=== PATIENT | male | born 1950 | race Caucasian/White ===

== ENCOUNTER 2017-12-07 13:23 | Emergency (ER) | payer MEDICARE ==
[2017-12-07 13:57] LABS: Bilirubin Negative (Negative); Blood, Urine Negative (Negative); Clarity CLEAR (Clear); Glucose, Urine (Dipstick) Negative (Negative); Leukocyte Moderate (Negative); Nitrite Negative (Negative); Protein, Urine (Dipstick) Negative (Neg-Trace); Specific Gravity, Urine 1.027 (1.002-1.036); pH, Urine 5.5 (5.0-9.0)
[2017-12-07 14:00] LABS: #Basophils 0.1 thou/uL (0.0-0.2); #Eosinphils 0.3 thou/uL (0.0-0.7); #Lymphocytes 2.9 thou/uL (1.20-3.40); #Monocytes 0.6 thou/uL (0.11-0.59); #Neutrophils 4.5 thou/uL (1.40-6.50); %Basophils 0.7 % (0.0-1.0); %Eosinophils 3.4 % (0.0-10.0); %Lymphocytes 34.8 % (21.0-51.0); %Monocytes 7.4 % (0.0-10.0); %Neutrophils 53.7 % (42.0-75.0); Hemoglobin 15.7 g/dL (14.0-18.0); Mean Corpuscular HGB CONC 34.1 g/dL (32.0-36.0); Mean Corpuscular Volume 90.7 fl (80.0-94.0); Mean Platelet Volume 8.9 fL (7.4-10.4); Platelet Count 253 thou/uL (130-400); RBC Distribution Width 12.1 % (11.5-14.5); Red Blood Cell (RBC) Count 5.08 mill/uL (4.70-6.10); White Blood Cell (WBC) Count 8.4 thou/uL (4.8-10.8)
[2017-12-07 14:00] LABS: Bacteria/HPF None Seen HPF (None Seen); Hyaline Casts/LPF 0-3 HYALINE CAST LPF (0-3 Hyaline); Squamous Epithelial 0-3 HPF (0-3)
[2017-12-07 14:33] LABS: ALT (SGPT) 36 U/L (8-55); AST (SGOT) 42 U/L (5-34); Albumin 4.6 g/dL (3.4-4.8); Alkaline Phosphatase 68 U/L (40-150); Anion Gap 13 mmol/L (10-20); BUN (Urea Nitrogen) 18 mg/dL (8.4-25.7); Bilirubin, Total 0.5 mg/dL (0.2-1.2); Calc. Creatinine Clearance 0 mL/min (70-130); Carbon Dioxide 24 mmol/L (23-31); Chloride 106 mmol/L (98-107); Estimated GFR-MDRD 57; Globulin 3.1 g/dL (2.4-3.5); Glucose 115 mg/dL (80-115); Lipase 66 U/L (8-78); Potassium 3.8 mmol/L (3.5-5.1); Protein, Total 7.7 g/dL (5.8-8.1); Sodium 139 mmol/L (136-145)
--- NOTE | 2017-12-07 15:33 | CT ---
ABDOMEN AND PELVIC CT SCAN WITH IV CONTRAST: History: 67-year-old male with history of left lower quadrant pain for several weeks. FINDINGS: The lung bases are clear. Status post cholecystectomy. Small hiatal hernia. Visualized liver, pancrea s, spleen and adrenal glands are unremarkable. There is a 0.9 x 1.5 cm diameter large obstructing chayo culus at the left ureteropelvic junction with marked hydronephrosis. There is at least one other nono bstructing left renal calculus measuring 0.4 cm. No evidence for other ureteral calculus. There appea rs to be some post op changes in the upper bilateral inguinal canals. Status post appendectomy. No ab scess or abnormal fluid collection. NO evidence for diverticulitis. IMPRESSION: Large obstructing left sided calculi at the ureteropelvic junction with marked hydronephrosis. Additi onally there is a smaller nonobstructing left renal calculus. Small hiatal hernia. Post op hysterecto my and appendectomy as well as some post-operative changes in the inguinal canals. No evidence for ac fay diverticulitis. No evidence for other significant acute process. POS: JAYRO
[2017-12-07 16:14] LABS: Platelet Count 231 thou/uL (130-400)
--- NOTE | 2017-12-07 17:23 | RAD ---
RADIOGRAPH ABDOMEN ONE VIEW: 12/07/2017 4:03 p.m. HISTORY: A 67-year-old male with obstructive calculus at left UPJ. FINDINGS: After IV contrast was given for the CT of 12/07/2017, 2:44 p.m., delayed excretion and retained contr ast material within a severely dilated left renal collecting system is present now. Calculus at the left UPJ, at the lower L2 level, is noted (approximately 15 x 9 mm). Contrast material in a nondilat ed right renal collecting system and right ureter. Questionable minimal amount of contrast material in a nondilated left mid ureter. Contrast in a normal appearing urinary bladder. IMPRESSION: Severe obstruction at the left ureteropelvic junction by a 15 mm calculus, causing severe left hydron ephrosis. POS: JAYRO
[2017-12-07] MEDS ORDERED: ISOVUE-370 76%-LOCM 1 ML ONE (17:49)
== END 2017-12-07 17:05 | disposition home or self-care (01) ==
LOC: ERS 13:23
DX: N13.2 Hydronephrosis with renal and ureteral calculous obstruction (principal); I10 Essential (primary) hypertension; F41.9 Anxiety disorder, unspecified; Z79.82 Long term (current) use of aspirin; Z79.899 Other long term (current) drug therapy
CPT/HCPCS: 36415; 74018; 74177; 80053; 81003; 81015; 83690; 85025; 85576

== ENCOUNTER 2017-12-09 09:29 | Day surgery (SDC) | payer MEDICARE ==
[2017-12-08 11:43] VITALS: BMI 26.6
[2017-12-09] MEDS ORDERED: Midazolam HCl 2 mg/2 ml Vial ONE (11:36)
[2017-12-09] MEDS ORDERED: Fentanyl 100 MCG/2 ML VIAL ONE (11:36)
--- NOTE | 2017-12-09 11:41 | EKG ---
Test Reason : PREOP Blood Pressure : / mmHG Vent. Rate : 063 BPM Atrial Rate : 063 BPM P-R Int : 178 ms QRS Dur : 092 ms QT Int : 424 ms P-R-T Axes : 048 004 026 degrees QTc Int : 433 ms Normal sinus rhythm Normal ECG When compared with ECG of 11-DEC-2014 09:30, No significant change was found Confirmed by DR. Kavitha KEBEDE ([id number]) on 12/09/2017 11:40:47 AM Referred By: RAMIN Confirmed By:DR. Kavitha KEBEDE
[2017-12-09] MEDS ORDERED: Iothalamate Meglumine 60% 50 ML VIAL FS ONE (13:14)
[2017-12-09] MEDS ORDERED: PROPOFOL 200 MG/20 ML VIAL ONE (13:17)
[2017-12-09] MEDS ORDERED: Ondansetron HCl/PF 4 MG/2 ML Vial ONE ×2 (13:17→13:36)
[2017-12-09] MEDS ORDERED: ePHEDrine/0.9% NaCl/PF SYRINGE 50 mg/10 ml ONE (13:17)
[2017-12-09] MEDS ORDERED: Dexamethasone 20 MG/5 ML VIAL ONE (13:17)
[2017-12-09] MEDS ORDERED: PHENYLEPHRINE-NS 100 MCG/ML 10 ML SYRINGE ONE (13:17)
[2017-12-09] MEDS ORDERED: Lidocaine 1% PF 5 ML VIAL ONE (13:17)
--- NOTE | 2017-12-09 14:39 | OP ---
DATE OF PROCEDURE: 12/09/2017 PREOPERATIVE DIAGNOSIS: Left renal stone. POSTOPERATIVE DIAGNOSIS: Left renal stone. PROCEDURE PERFORMED: Left ESWL, cystoscopy, left retrograde, left stent. SURGEON: Dr. Raf Wilson. ANESTHETIC: General. ESTIMATED BLOOD LOSS: Not recorded. FINDINGS: He had a very easily visualized proximal left ureteral stone, measuring, I would guess, ab out a cm in its largest diameter. His CAT scan, I think, showed it to be 1.5 mm. He was treated wit h 3000 shocks at maximum kV level of 6. It did appear to fragment well. At the end of the procedure , a stent was placed. There was still some difficulty in passing a guidewire by it. There was a lit tle bit of extravasation of contrast while doing this. He had a dilated calyceal system proximal to it. We ended up placing a 6 x 26 Polaris double-J stent with a string attached. OPERATIVE TECHNIQUE: Obtained written and verbal consents from the patient, he was taken to the oper ating suite. He was placed in supine position on the treatment table. PlexiPulses were placed on hi s lower extremities and turned on. He was given a general anesthetic, oral obturator intubation. He was coupled to the lithotripter unit. The stone was placed in treatment focal point and shockwave t herapy was commenced at a rate of 60 at a very low kV after a couple 100 shocks, a 5-minute pause was given. We then slowly brought the kV up to 6. He was treated with total of 3000 shocks. Fluorosco py was used intermittently to document fragmentation and to re-position as necessary. It did appear that the stone had fragmented into a number of pieces, but because of its size, we went ahead and mariangel cted to do a stent. He was taken and placed in the dorsal lithotomy position. He has received 2 gra ms of IV Ancef. He was sterilely prepped and draped. Cystoscopy was performed with a 22-Mongolian perez th. This was well-lubricated and passed in direct vision through the male urethra into the urinary b ladder with the aid of a 30-degree lens and video camera and monitor. The bladder was filled and emp tied. There was some bloody efflux from the left ureteral orifice. A guidewire was fed up to the le isabel of stone. It would not go by this. A Pollack catheter was fed up to this level. The wire was r emoved, some half and half contrast was injected showing a dilated calyceal system and filling defect with stone was in the proximal ureter/UPJ region. We could not get the guidewire by it, but we were able to get an angle-tipped Glidewire by it and then re-shot some contrast. There was a little bit of extravasation, but then contrast in the dilated collecting system. We then were able to get the o pen-ended catheter abide the stone over the Glidewire, replaced the Glidewire with a guidewire, remov ed the open-ended catheter and placed a 6 x 26 Polaris double-J stent pushing it up with the aid of a pusher so its proximal cord in the renal pelvis and its distal end coiled in the bladder when the wi re was removed. The bladder was drained and the instruments were removed. The string had been left attached to the distal end of the stent. He was, at this point, awakened, extubated, and taken by a stretcher to recovery room.
[2017-12-09] MEDS ORDERED: HYDROcodone/Acetaminophen 5/325 mg Tablet ONE (15:58)
== END 2017-12-09 16:25 | disposition home or self-care (01) ==
LOC: SDC 09:29
PROVIDERS: ATTEND Urology
PROC: 0TF7XZZ Fragmentation in Left Ureter, External Approach (ICD-10-PCS; principal; 2017-12-09)
PROC: 0T778DZ Dilation of Left Ureter with Intraluminal Device, Via Natural or Artificial Opening Endoscopic (ICD-10-PCS; 2017-12-09)
DX: N20.1 Calculus of ureter (principal); I25.10 Atherosclerotic heart disease of native coronary artery without angina pectoris; E78.5 Hyperlipidemia, unspecified; Z79.82 Long term (current) use of aspirin; Z79.899 Other long term (current) drug therapy; Z88.2 Allergy status to sulfonamides; Z98.890 Other specified postprocedural states
CPT/HCPCS: 50590; 52332; 93005; C1758; C1769; 93010; J1100; J2001; J2250; J2405; J2704; J3010; Q9961

== ENCOUNTER 2019-02-25 10:32 | Day surgery (SDC) | payer MEDICARE ==
--- NOTE | 2019-02-24 11:16 | HP ---
HISTORY OF PRESENT ILLNESS: Mr. Zhao Mccracken is a 68-year-old male, comes in for a colonoscopy for colon cancer screening. The patient has no specific GI symptoms. He has no family history of colon cancer. His last colonoscopy was 11 years ago. ALLERGIES: SULFA. SOCIAL HISTORY: He is a former smoker. He does not drink alcohol. MEDICAL ILLNESS: 1. Hypertension. 2. Hyperlipidemia. 3. Status post coronary artery bypass graft. 4. Kidney stones, status post lithotripsy. 5. Prostatic hypertrophy. 6. Depression/anxiety. 7. Appendectomy. 8. Cholecystectomy. 9. Double hernia repair. PHYSICAL EXAMINATION: VITAL SIGNS: Pulse is 70, blood pressure 130/76. HEENT: Conjunctivae are clear. CARDIOVASCULAR: First and second heart sounds are normal. LUNGS: Clear to auscultation. ABDOMEN: Soft. No organomegaly. No tenderness. No masses. EXTREMITIES: Reveal no edema. ADMITTING DIAGNOSIS: A 68-year-old male, comes for a colonoscopy for colon cancer screening. Job ID: [id number]
[2019-02-24 11:25] VITALS: BMI 27.6
--- NOTE | 2019-02-25 18:35 | OP ---
DATE OF PROCEDURE: 02/25/2019 OPERATIVE PROCEDURE: Colonoscopy. PREOPERATIVE DIAGNOSIS: This is a 68-year-old male, undergoing colonoscopy for colon cancer screening. POSTOPERATIVE DIAGNOSES: 1. Hemorrhoids. 2. Sigmoid diverticular disease. DESCRIPTION OF PROCEDURE: The patient was placed on his left lateral position and was given sedation by Anesthesia Department. A rectal exam was done before the scope was advanced into the rectum. No lesions felt on rectal exam. A Pentax video colonoscope was introduced into the rectum and advanced down to the cecum. The patient had some retained fecal material coating the mucosa. Water was irrigated and washed out. In the appendiceal orifice, ileocecal valve, and cecum, no pathology seen. Withdrawal of the scope from cecum to ascending colon, hepatic flexure, no pathology seen. In the transverse colon, splenic flexure, descending colon, no pathology seen. The sigmoid colon shows scattered diverticula, mild. Retroflexion of scope in the rectum revealed hemorrhoids. DISCHARGE PLANNING: This is a 68-year-old male, came for a colonoscopy for colon cancer screening. He underwent colonoscopy and found to have hemorrhoids and sigmoid diverticular disease. DISCHARGE RECOMMENDATIONS: 1. The patient advised to call me if he develops abdominal pain, hematochezia. 2. High-fiber diet. 3. To come back to clinic in 2 weeks. Job ID: [id number]
== END 2019-02-25 14:10 | disposition home or self-care (01) ==
LOC: SDC 10:32
PROVIDERS: ATTEND Internal Medicine Gastroenterology
PROC: 0DJD8ZZ Inspection of Lower Intestinal Tract, Via Natural or Artificial Opening Endoscopic (ICD-10-PCS; principal; 2019-02-25)
DX: Z12.11 Encounter for screening for malignant neoplasm of colon (principal); K57.30 Diverticulosis of large intestine without perforation or abscess without bleeding; K64.9 Unspecified hemorrhoids; E78.5 Hyperlipidemia, unspecified; I25.10 Atherosclerotic heart disease of native coronary artery without angina pectoris; I10 Essential (primary) hypertension; F41.9 Anxiety disorder, unspecified; F32.9 Major depressive disorder, single episode, unspecified; N40.0 Benign prostatic hyperplasia without lower urinary tract symptoms; Z87.891 Personal history of nicotine dependence; Z79.82 Long term (current) use of aspirin; Z79.899 Other long term (current) drug therapy; Z88.2 Allergy status to sulfonamides; Z95.1 Presence of aortocoronary bypass graft; Z98.890 Other specified postprocedural states

== ENCOUNTER 2019-05-17 09:38 | Outpatient (CLI) | payer MEDICARE ==
--- NOTE | 2019-05-17 10:30 | RAD ---
XR Abdomen 2 View/1 View Cxr HISTORY: Left-sided abdomen pain x2 weeks. History of kidney stones. COMPARISON: 07/26/2018 study. FINDINGS: The bowel gas pattern is nonobstructive. No free air demonstrated. There is an approximatel y 5 mm mid pole left renal calculus present. There are arthritic changes of the spine. PA chest: Heart size is within normal limits. Postop sternotomy changes are seen. The lungs show some mild chronic change. IMPRESSION: Stable left nephrolithiasis. Postcholecystectomy change.
== END 2019-05-17 09:39 | disposition home or self-care (01) ==
LOC: SCSRAD 09:38
PROVIDERS: ATTEND Family Medicine
DX: R10.9 Unspecified abdominal pain (principal); N20.0 Calculus of kidney; Z98.890 Other specified postprocedural states
CPT/HCPCS: 74022

== ENCOUNTER 2019-09-22 12:54 | Outpatient (CLI) | payer MEDICARE ==
--- NOTE | 2019-09-22 15:36 | CT ---
CT ABDOMEN AND PELVIS WITH AND WITHOUT IV CONTRAST: 09/22/28 HISTORY: Renal stone and hematuria. COMPARISON: 11/20/17. There are calcified granulomas in the visualized portions of the lung sanchez. The patient is post cho lecystectomy. A small hiatal hernia is present. The liver, spleen, pancreas, and adrenal glands are normal. There are calculi in the left kidney, the largest measuring about 5 mm. There is a punctate c alculus in the inferior pole of the right kidney. No calculi seen in the ureters or the urinary bladd er. No hydroureteronephrosis is noted on either side. Postcontrast images demonstrate no evidence of enhancing renal mass. Delayed images demonstrate normal contrast excretion into the ureters and urina ry bladder. The prostate is enlarged. No free air, free fluid or lymphadenopathy is seen in the abdomen or pelvis. There are vascular calci fications without evidence of aneurysmal dilatation of the abdominal aorta. There are degenerative ch anges in the spine. IMPRESSION: 1. Nonobstructing bilateral renal calculi. 2. Small hiatal hernia. 3. Chronic diverticulosis. POS: OFF
[2019-09-22] MEDS ORDERED: Iopamidol-370 76% 500 ML 1 ML ONE (16:29)
== END 2019-09-22 12:55 | disposition home or self-care (01) ==
LOC: BICCT 12:54
PROVIDERS: ATTEND Urology
DX: N20.0 Calculus of kidney (principal); R31.9 Hematuria, unspecified; K44.9 Diaphragmatic hernia without obstruction or gangrene; K57.30 Diverticulosis of large intestine without perforation or abscess without bleeding
CPT/HCPCS: 74178; Q9967

== ENCOUNTER 2021-08-30 14:16 | Outpatient (CLI) | payer MEDICARE | END 2021-08-30 14:17 | disposition home or self-care (01) | LOC: BICULT 14:16 | PROVIDERS: ATTEND Family Medicine | DX: R10.9 Unspecified abdominal pain (principal); N13.30 Unspecified hydronephrosis; Z87.442 Personal history of urinary calculi | CPT/HCPCS: 76770 ==

== ENCOUNTER 2021-09-05 16:41 | Outpatient (CLI) | payer MEDICARE ==
[2021-09-05 18:33] LABS: PTT 28.3 sec (22.0-33.0); Prothrombin Time 11.3 sec (9.5-12.1)
[2021-09-05 18:34] LABS: Mean Corpuscular HGB CONC 33.5 g/dL (32.0-36.0); Mean Corpuscular Hemoglobin 30.1 pg (27.0-33.0); Mean Corpuscular Volume 89.9 fl (81.2-95.1); Mean Platelet Volume 11.5 fl (7.4-10.4); Platelet Count 296 10x3/uL (150-450); RBC Distribution Width 12.4 % (11.5-14.5); Red Blood Cell (RBC) Count 4.65 10x6/uL (4.32-5.72); White Blood Cell (WBC) Count 10.3 10x3/uL (3.5-10.5)
[2021-09-05 18:37] LABS: Anion Gap 14 mmol/L (10-20); BUN (Urea Nitrogen) 18 mg/dL (8.4-25.7); Calc. Creatinine Clearance 0 mL/min (70-130); Calcium 9.1 mg/dL (7.8-10.44); Carbon Dioxide 24 mmol/L (23-31); Chloride 106 mmol/L (98-107); Glucose 99 mg/dL (80-115); Sodium 140 mmol/L (136-145)
[2021-09-06 09:13] LABS: SARS-CoV-2 PCR by NAA Not Detected (NotDetected)
== END 2021-09-05 16:42 | disposition home or self-care (01) ==
LOC: LABBT 16:41
PROVIDERS: ATTEND Urology
DX: Z01.812 Encounter for preprocedural laboratory examination (principal); N20.1 Calculus of ureter; Z20.822 Contact with and (suspected) exposure to COVID-19; R30.0 Dysuria
CPT/HCPCS: 80048; 85027; 85610; 85730; 87086; U0003; U0005

== ENCOUNTER 2021-09-10 06:37 | Day surgery (SDC) | payer MEDICARE ==
[2021-09-06 11:44] VITALS: BMI 26.6
[2021-09-10 07:37] LABS: Platelet Count 271 thou/uL (130-400)
[2021-09-10 07:46] LABS: EPI 109 SEC (67-199)
[2021-09-10] MEDS ORDERED: Fentanyl 100 MCG/2 ML VIAL ONE (08:40)
[2021-09-10] MEDS ORDERED: Iothalamate Meglumine 60% 50 ML VIAL FS ONE (08:51)
[2021-09-10] MEDS ORDERED: Lidocaine 1% PF 5 ML VIAL ONE (09:09)
[2021-09-10] MEDS ORDERED: PHENYLEPHRINE-NS 100 MCG/ML 10 ML SYRINGE ONE (09:09)
[2021-09-10] MEDS ORDERED: Ondansetron PF 4 MG/2 ML Vial ONE (09:09)
[2021-09-10] MEDS ORDERED: PROPOFOL 200 MG/20 ML VIAL ONE (09:09)
[2021-09-10] MEDS ORDERED: ePHEDrine 50 MG/ML VIAL ONE (09:09)
[2021-09-10] MEDS ORDERED: HYDROcodone/Acetaminophen 5/325 mg Tablet ONE (12:38)
== END 2021-09-10 13:05 | disposition home or self-care (01) ==
LOC: SDC 06:37
PROVIDERS: ATTEND Urology
PROC: 0TF7XZZ Fragmentation in Left Ureter, External Approach (ICD-10-PCS; principal; 2021-09-10)
PROC: 0T778DZ Dilation of Left Ureter with Intraluminal Device, Via Natural or Artificial Opening Endoscopic (ICD-10-PCS; 2021-09-10)
DX: N13.2 Hydronephrosis with renal and ureteral calculous obstruction (principal); I25.10 Atherosclerotic heart disease of native coronary artery without angina pectoris; E78.5 Hyperlipidemia, unspecified; Z79.82 Long term (current) use of aspirin; Z79.899 Other long term (current) drug therapy; Z88.2 Allergy status to sulfonamides
CPT/HCPCS: 50590; 52332; 74018; 85576; Q9961; C2617; J3010

== ENCOUNTER 2021-09-18 12:53 | Outpatient (CLI) | payer MEDICARE ==
[2021-09-18 14:42] LABS: Mean Corpuscular HGB CONC 32.3 g/dL (32.0-36.0); Mean Corpuscular Hemoglobin 29.4 pg (27.0-33.0); Mean Corpuscular Volume 91.2 fl (81.2-95.1); Mean Platelet Volume 11.6 fl (7.4-10.4); Platelet Count 297 10x3/uL (150-450); RBC Distribution Width 12.6 % (11.5-14.5); Red Blood Cell (RBC) Count 4.76 10x6/uL (4.32-5.72); White Blood Cell (WBC) Count 8.9 10x3/uL (3.5-10.5)
[2021-09-18 15:03] LABS: INR-International Normal Ratio 1.1; Prothrombin Time 11.8 sec (9.5-12.1)
[2021-09-18 15:06] LABS: Anion Gap 15 mmol/L (10-20); BUN (Urea Nitrogen) 16 mg/dL (8.4-25.7); Calc. Creatinine Clearance 0 mL/min (70-130); Calcium 9.3 mg/dL (7.8-10.44); Carbon Dioxide 25 mmol/L (23-31); Chloride 106 mmol/L (98-107); Glucose 95 mg/dL (80-115); Potassium 4.1 mmol/L (3.5-5.1); Sodium 142 mmol/L (136-145)
[2021-09-19 11:15] LABS: SARS-CoV-2 PCR by NAA Not Detected (NotDetected)
== END 2021-09-18 12:54 | disposition home or self-care (01) ==
LOC: LABBT 12:53
PROVIDERS: ATTEND Urology
DX: Z01.818 Encounter for other preprocedural examination (principal); N20.2 Calculus of kidney with calculus of ureter; Z20.822 Contact with and (suspected) exposure to COVID-19
CPT/HCPCS: 80048; 85027; 85610; 85730; 87086; 93005; U0003; U0005; 93010

== ENCOUNTER 2022-02-09 08:05 | Emergency (ER) | payer MEDICARE ==
[2022-02-09] MEDS ORDERED: Ketorolac Tromethamine 30 MG/ML VIAL ONE (08:16)
[2022-02-09 08:30] LABS: #Basophils 0.1 thou/uL (0.0-0.2); #Lymphocytes 1.6 thou/uL (1.20-3.40); #Monocytes 0.7 thou/uL (0.11-0.59); #Neutrophils 11.7 thou/uL (1.40-6.50); %Basophils 0.6 % (0.0-1.0); %Eosinophils 0.1 % (0.0-10.0); %Monocytes 4.7 % (0.0-10.0); %Neutrophils 83.5 % (42.0-75.0); Hemoglobin 15.9 g/dL (14.0-18.0); Mean Corpuscular HGB CONC 34.8 g/dL (32.0-36.0); Mean Corpuscular Hemoglobin 31.9 pg (27.0-31.0); Mean Corpuscular Volume 91.7 fL (78.0-98.0); Mean Platelet Volume 9.3 fL (7.4-10.4); Platelet Count 206 thou/uL (130-400); RBC Distribution Width 11.6 % (11.5-14.5); Red Blood Cell (RBC) Count 4.98 mill/uL (4.70-6.10)
[2022-02-09 08:52] LABS: ALT (SGPT) 65 U/L (8-55); AST (SGOT) 73 U/L (5-34); Albumin 4.3 g/dL (3.4-4.8); Alkaline Phosphatase 77 U/L (40-110); Anion Gap 15 mmol/L (10-20); BUN (Urea Nitrogen) 18 mg/dL (8.4-25.7); CK (CPK) 204 U/L (30-200); Calc. Creatinine Clearance 0 mL/min (70-130); Calcium 9.6 mg/dL (7.8-10.44); Carbon Dioxide 23 mmol/L (23-31); Chloride 107 mmol/L (98-107); Estimated GFR 46; Globulin 3.1 g/dL (2.4-3.5); Glucose 141 mg/dL (83-110); Lipase 213 U/L (8-78); Potassium 3.8 mmol/L (3.5-5.1); Protein, Total 7.4 g/dL (5.8-8.1); Sodium 141 mmol/L (136-145)
[2022-02-09 10:03] LABS: Bilirubin Negative (Negative); Blood, Urine 2+ (Negative); Clarity Clear (Clear); Glucose, Urine (Dipstick) Normal (Negative); Ketone, Urine Negative (Negative); Leukocyte Negative Leu/uL (Negative); Nitrite Negative (Negative); Protein, Urine (Dipstick) Negative (Neg-Trace); Specific Gravity, Urine 1.018 (1.002-1.036); Urobilinogen Normal mg/dL (Less than 2); pH, Urine 7.5 (5.0-9.0)
[2022-02-09 10:19] LABS: Bacteria/HPF Rare-Few HPF (None Seen); Squamous Epithelial None Seen HPF (0-3); WBC/HPF None Seen HPF (0-3)
== END 2022-02-09 10:32 | disposition home or self-care (01) ==
LOC: ERS 08:05
DX: N13.2 Hydronephrosis with renal and ureteral calculous obstruction (principal); I10 Essential (primary) hypertension; Z79.899 Other long term (current) drug therapy; Z79.82 Long term (current) use of aspirin
CPT/HCPCS: 36415; 74176; 80053; 81003; 81015; 82550; 83690; 84484; 85025; 93005; 96361; 96374; J1885

== ENCOUNTER 2023-10-09 08:04 | Outpatient (CLI) | payer MEDICARE ==
[2023-10-09 09:02] LABS: Hematocrit 42.5 % (38.8-50.0); Hemoglobin 14.8 g/dL (13.5-17.5); Mean Corpuscular HGB CONC 34.8 g/dL (32.0-36.0); Mean Corpuscular Hemoglobin 31.4 pg (27.0-33.0); Mean Corpuscular Volume 90.2 fl (81.2-95.1); Mean Platelet Volume 11.2 fl (7.4-10.4); Platelet Count 220 10x3/uL (150-450); RBC Distribution Width 13.2 % (11.5-14.5); Red Blood Cell (RBC) Count 4.71 10x6/uL (4.32-5.72)
[2023-10-09 09:20] LABS: Anion Gap 13 mmol/L (10-20); BUN (Urea Nitrogen) 24 mg/dL (8.4-25.7); Calc. Creatinine Clearance 0 mL/min (70-130); Calcium 9.2 mg/dL (7.8-10.44); Carbon Dioxide 27 mmol/L (23-31); Chloride 104 mmol/L (98-107); Estimated GFR 50; Glucose 115 mg/dL (83-110); Potassium 4.5 mmol/L (3.5-5.1); Sodium 139 mmol/L (136-145)
[2023-10-09 09:47] LABS: INR-International Normal Ratio 1.1; PTT 29.9 sec (22.0-33.0); Prothrombin Time 12.2 sec (9.5-12.1)
== END 2023-10-09 08:05 | disposition home or self-care (01) ==
LOC: LABBT 08:04
PROVIDERS: ATTEND Urology
DX: Z01.812 Encounter for preprocedural laboratory examination (principal); N20.1 Calculus of ureter
CPT/HCPCS: 80048; 85027; 85610; 85730

== ENCOUNTER 2023-10-13 11:29 | Day surgery (SDC) | payer MEDICARE ==
[2023-10-09 08:48] VITALS: BMI 25.2
[2023-10-13] MEDS ORDERED: PROPOFOL 20 ML ONE (13:48)
[2023-10-13] MEDS ORDERED: fentaNYL PF 100 MCG/2 ML SYRINGE ONE (13:49)
[2023-10-13] MEDS ORDERED: Sodium Chloride 0.9% 100 ML ONE (13:56)
[2023-10-13] MEDS ORDERED: CEFAZOLIN 2 GM VIAL ONE (13:56)
[2023-10-13] MEDS ORDERED: PHENYLEPHRINE-NS 100 MCG/ML 10 ML SYRINGE ONE (14:29)
[2023-10-13] MEDS ORDERED: Ondansetron PF 4 MG/2 ML Vial ONE (14:29)
[2023-10-13] MEDS ORDERED: Dexamethasone 20 MG/5 ML VIAL ONE (14:29)
[2023-10-13] MEDS ORDERED: ePHEDrine Sulfate 50 MG/10 ML VIAL ONE (14:29)
== END 2023-10-13 16:33 | disposition home or self-care (01) ==
LOC: SDC 11:29
PROVIDERS: ATTEND Urology
PROC: 0WHR8YZ Insertion of Other Device into Genitourinary Tract, Via Natural or Artificial Opening Endoscopic (ICD-10-PCS; principal; 2023-10-13)
DX: N20.1 Calculus of ureter (principal); I25.10 Atherosclerotic heart disease of native coronary artery without angina pectoris; I10 Essential (primary) hypertension; E78.5 Hyperlipidemia, unspecified; Z88.2 Allergy status to sulfonamides; Z90.49 Acquired absence of other specified parts of digestive tract; Z95.1 Presence of aortocoronary bypass graft; Z79.899 Other long term (current) drug therapy
CPT/HCPCS: 74420; C1874; J1100; J2405; J2704; J3490